=== PATIENT | male | born 1955 | race Caucasian/White ===

== ENCOUNTER 2018-03-09 12:42 | Emergency (ER) | payer OTHER ==
--- NOTE | 2018-03-09 13:55 | ERPHSYRPT ---
- History of Present Illness Time Seen by Provider: 03/09/18 13:43 Source: patient Exam Limitations: no limitations Patient Subjective Stated Complaint: c/o generalized weakness, dry cough, 3-4 days, fever friday 102.4. Triage Nursing Assessment: pt ambulated with steady gait to room. Resp easy with clear breath sounds. denies pain or disc. no cough noted at present. lungs CTA, diminished. Physician History: The patient is a 62-year-old male with his complaining of a fever and cough for 4 days. He also feels weak and has been sweating profusely. His temperature was 102.43 days ago. He tried to get into his local doctor but was unable to today. He denies pain. His past medical history is significant for coronary artery disease, CABG, hypertension, GERD, and high cholesterol. Timing/Duration: day(s) (4), gradual onset, worse Fever Severity: moderate Fever Therapy TOWER HAND: Ibuprofen Associated Symptoms: cough, diaphoresis, weakness, No shortness of breath Allergies/Adverse Reactions: No Known Drug Allergies Allergy (Unverified 03/09/18 13:22) Home Medications: Aspirin EC 81 mg [Ecotrin 81 mg] 81 mg PO DAILY 03/09/18 [History] Atorvastatin Calcium 40 mg PO DAILY 03/09/18 [History] Carvedilol 3.125 mg [Coreg 3.125 MG] 3.125 mg PO BID 03/09/18 [History] Famotidine [Pepcid] 20 mg PO BID 03/09/18 [History] Krill/Om-3/Dha/Epa/Phospho/Ast [Megared Sabine-3 Krill Oil Sfgl] 1 each PO DAILY 03/09/18 [History] Losartan Potassium 50 mg [Cozaar 50 MG] 50 mg PO DAILY 03/09/18 [History] Multivitamin [Multi-Vitamin Daily] 1 tab PO DAILY 03/09/18 [History] Hx Tetanus, Diphtheria Vaccination/Date Given: No Hx Influenza Vaccination/Date Given: No Hx Pneumococcal Vaccination/Date Given: Yes Immunizations Up to Date: Yes - Review of Systems Constitutional: Fever, Night Sweats, Weakness, No Chills Eyes: No Symptoms Ears, Nose, & Throat: No Symptoms Respiratory: Cough, No Wheezing Cardiac: No Chest Pain, No Edema, No Syncope Abdominal/Gastrointestinal: No Abdominal Pain, No Nausea, No Vomiting, No Diarrhea Genitourinary Symptoms: No Dysuria Musculoskeletal: No Back Pain, No Neck Pain Skin: No Rash Neurological: No Dizziness, No Focal Weakness, No Sensory Changes Psychological: No Symptoms Endocrine: No Symptoms Hematologic/Lymphatic: No Symptoms Immunological/Allergic: No Symptoms All Other Systems: Reviewed and Negative - Past Medical History Pertinent Past Medical History: Yes Neurological History: No Pertinent History ENT History: No Pertinent History Cardiac History: Coronary Artery Disease Respiratory History: No Pertinent History Endocrine Medical History: No Pertinent History Musculoskeletal History: No Pertinent History History: No Pertinent History Psycho-Social History: No Pertinent History Male Reproductive Disorders: No Pertinent History - Past Surgical History Past Surgical History: Yes Neuro Surgical History: No Pertinent History Cardiac: CABG Gastrointestinal: Appendectomy Genitourinary: No Pertinent History Musculoskeletal: No Pertinent History Male Surgical History: No Pertinent History Other Surgical History: 6 bypasses 2014 - Social History Smoking Status: Never smoker Drug Use: none Patient Lives Alone: No - Nursing Vital Signs Nursing Vital Signs: Initial Vital Signs Temperature 99.0 F 03/09/18 12:42 Pulse Rate 76 03/09/18 12:42 Respiratory Rate 20 03/09/18 12:42 Blood Pressure 122/56 03/09/18 12:42 O2 Sat by Pulse Oximetry 97 03/09/18 12:42 Pain Scale Pain Intensity 0 - Physical Exam General Appearance: mild distress Eye Exam: PERRL/EOMI ENT Exam: No pharyngeal erythema, No tonsillar exudate Neck Exam: supple, full range of motion, No meningismus Respiratory Exam: normal breath sounds, lungs clear, no respiratory distress Cardiovascular/Chest Exam: normal heart sounds, regular rate/rhythm, No murmur, No edema Gastrointestinal/Abdominal Exam: soft, non tender, no distention, hernia ( ventral hernia that is not tender) Rectal Exam: not done Extremity Exam: non-tender, normal range of motion, normal inspection, normal capillary refill Neurologic Exam: alert, oriented x 3, cooperative, feeder/folder II-XII nml as tested, normal mood/affect, sensation nml, No motor deficits Skin Exam: normal color, warm, dry, No rash SpO2 Interpretation: normal SpO2: 97 Oxygen Delivery: Room Air - Radiology Exams Chest X-ray Interpretation: Reviewed by me, Teleradiologist Report (per Dr Tirado), Negative Ordered Tests: Active Orders 24 hr Category Date Time Status Clean Catch Urine Specimen STAT Care 03/09/18 14:01 Active IV Insertion STAT Care 03/09/18 14:01 Active CHEST 2 VIEWS (PA AND LAT) Stat Exams 03/09/18 14:02 Completed BMP Stat Lab 03/09/18 14:17 Completed CBC W DIFF Stat Lab 03/09/18 14:17 Completed Lactic Acid Stat Lab 03/09/18 14:20 Completed Manual Differential NC Stat Lab 03/09/18 14:17 Completed UA W/ MICROSCOPIC Stat Lab 03/09/18 14:10 Completed Medication Summary Discontinued Medications Generic Name Dose Route Start Last Admin Trade Name Freq PRN Reason Stop Dose Admin Sodium Chloride 1,000 mls @ 999 mls/hr 03/09/18 14:01 03/09/18 14:49 Sodium Chloride 0.9% 1000 Ml IV 03/09/18 15:01 999 mls/hr .Q1H1M STA Administration Sodium Chloride Confirm 03/09/18 14:24 Sodium Chloride 0.9% 1000 Ml Administered 03/09/18 14:25 Dose 1,000 mls @ ud .ROUTE .STK-MED ONE Lab/Rad Data: Laboratory Result Diagrams 03/09/18 14:17 03/09/18 14:17 Laboratory Results 03/09/18 03/09/18 03/09/18 Range/Units 14:22 14:20 14:17 WBC (4.0-10.5) K/mm3 RBC (4.1-5.6) M/mm3 Hgb (12.5-18.0) gm/dl Hct (42-50) % MCV (78-100) fl MCH (26-32) pg MCHC (32-36) g/dl RDW (11.5-14.0) % Plt Count (150-450) K/mm3 MPV (6-9.5) fl Segmented Neutrophils (36.-66.) % Band Neutrophils (0.0-2.0) % Lymphocytes (Manual) (24-44) % Monocytes (Manual) (0.0-12.0) % Toxic Granulation Platelet Estimate (NORMAL) RBC Morphology Sodium 138 (137-145) mmol/L Potassium 3.9 (3.5-5.1) mmol/L Chloride 103 (98-107) mmol/L Carbon Dioxide 25 (22-30) mmol/L Anion Gap 14.4 (5-15) MEQ/L BUN 14 (9-20) mg/dL Creatinine 0.80 (0.66-1.25) mg/dL Estimated GFR > 60.0 ML/MIN Glucose 109 H (74-106) mg/dL Lactic Acid 1.1 (0.4-2.0) Calcium 8.5 (8.4-10.2) mg/dL Ur Collection Type Urine Color (YELLOW) Urine Appearance (CLEAR) Urine pH (5-6) Ur Specific [place] (1.005-1.025) Urine Protein (Negative) Urine Ketones (NEGATIVE) Urine Blood (0-5) Bill/ul Urine Nitrite (NEGATIVE) Urine Bilirubin (NEGATIVE) Urine Urobilinogen (0-1) mg/dL Ur Leukocyte Esterase (NEGATIVE) Urine Microscopic WBC (0-5) /HPF Ur Epithelial Cells (FEW) /HPF Urine Bacteria (NEGATIVE) /HPF Urine Mucus (NEGATIVE) /HPF Urine Culture Reflexed (NO) Urine Glucose (NEGATIVE) mg/dL Influenza Type A Ag NEGATIVE (NEGATIVE) Influenza Type B Ag NEGATIVE (NEGATIVE) RSV (PCR) NEGATIVE (Negative) Group A Strep Antibody NEGATIVE (NEGATIVE) 03/09/18 03/09/18 Range/Units 14:17 14:10 WBC 6.7 (4.0-10.5) K/mm3 RBC 5.17 (4.1-5.6) M/mm3 Hgb 16.2 (12.5-18.0) gm/dl Hct 46.4 (42-50) % MCV 89.7 (78-100) fl MCH 31.3 (26-32) pg MCHC 34.9 (32-36) g/dl RDW 13.9 (11.5-14.0) % Plt Count 111 L (150-450) K/mm3 MPV 9.7 H (6-9.5) fl Segmented Neutrophils 49 (36.-66.) % Band Neutrophils 1 (0.0-2.0) % Lymphocytes (Manual) 44 (24-44) % Monocytes (Manual) 6 (0.0-12.0) % Toxic Granulation 1+ Platelet Estimate NORMAL (NORMAL) RBC Morphology NORMAL Sodium (137-145) mmol/L Potassium (3.5-5.1) mmol/L Chloride (98-107) mmol/L Carbon Dioxide (22-30) mmol/L Anion Gap (5-15) MEQ/L BUN (9-20) mg/dL Creatinine (0.66-1.25) mg/dL Estimated GFR ML/MIN Glucose (74-106) mg/dL Lactic Acid (0.4-2.0) Calcium (8.4-10.2) mg/dL Ur Collection Type VOID Urine Color DARK YELLOW (YELLOW) Urine Appearance HAZY (CLEAR) Urine pH 5.0 (5-6) Ur Specific [place] 1.020 (1.005-1.025) Urine Protein 50 (Negative) Urine Ketones SMALL (NEGATIVE) Urine Blood NEGATIVE (0-5) Bill/ul Urine Nitrite NEGATIVE (NEGATIVE) Urine Bilirubin NEGATIVE (NEGATIVE) Urine Urobilinogen NORMAL (0-1) mg/dL Ur Leukocyte Esterase TRACE (NEGATIVE) Urine Microscopic WBC 0-2 (0-5) /HPF Ur Epithelial Cells RARE (FEW) /HPF Urine Bacteria RARE (NEGATIVE) /HPF Urine Mucus MANY (NEGATIVE) /HPF Urine Culture Reflexed NO (NO) Urine Glucose NEGATIVE (NEGATIVE) mg/dL Influenza Type A Ag (NEGATIVE) Influenza Type B Ag (NEGATIVE) RSV (PCR) (Negative) Group A Strep Antibody (NEGATIVE) - Progress Progress: improved Progress Note: 03/09/18 15:34 pt improves with NS IV. Counseled pt/family regarding: lab results, diagnosis, need for follow-up, rad results - Departure Time of Disposition: 15:34 Departure Disposition: Home Clinical Impression: Fever of unknown origin, Cough, Thrombocytopenia Condition: Stable Critical Care Time: No Referrals: JAILENE LAINEZ [Primary Care Provider] - Additional Instructions: You have a cough and fever of unknown origin. You were given fluids by IV in the ER. Take azithromycin 500 mg today and 250 mg daily for days 2 through 5. You also have a mildly low platelet count in your serum. Follow-up with your primary medical doctor later this week for further evaluation. Prescriptions: Azithromycin 250 mg [Zithromax 250 MG TABLET] 250 mg PO ZPACK #6 tablet
[2018-03-09] MEDS ORDERED: Sodium Chloride 0.9% 1000 ML 1,000 ML IV STA (14:01)
[2018-03-09] MEDS ORDERED: Sodium Chloride 0.9% 1000 ML 1,000 ML ONE (14:24)
[2018-03-09 14:31] LABS: Hematocrit 46.4 % (42-50); Hemoglobin 16.2 gm/dl (12.5-18.0); Mean Cell Volume 89.7 fl (78-100); Mean Corpuscular Hemoglobin 31.3 pg (26-32); Mean Corpuscular Hgb Concent. 34.9 g/dl (32-36); Mean Platelet Volume 9.7 fl (6-9.5); Platelet Count 111 K/mm3 (150-450); Red Blood Count 5.17 M/mm3 (4.1-5.6); Red Cell Distribution Width 13.9 % (11.5-14.0); White Blood Count 6.7 K/mm3 (4.0-10.5)
[2018-03-09 14:43] LABS: Appearance HAZY (CLEAR)
[2018-03-09 14:44] LABS: Bacteria RARE /HPF (NEGATIVE); Bilirubin NEGATIVE (NEGATIVE); Blood NEGATIVE Ery/ul (0-5); Epithelial Cells RARE /HPF (FEW); Glucose NEGATIVE (NEGATIVE); Ketones SMALL (NEGATIVE); Leukocyte Esterase TRACE (NEGATIVE); Mucus MANY /HPF (NEGATIVE); Nitrite NEGATIVE (NEGATIVE); Protein,Urine Dip 50 (Negative); Urobilinogen NORMAL mg/dL (0-1); WBC 0-2 /HPF (0-5)
[2018-03-09 14:48] LABS: ANION GAP 14.4 MEQ/L (5-15); BLOOD UREA NITROGEN 14 mg/dL (9-20); CHLORIDE 103 mmol/L (98-107); Calcium 8.5 mg/dL (8.4-10.2); Carbon Dioxide 25 mmol/L (22-30); Glucose 109 mg/dL (74-106); Potassium 3.9 mmol/L (3.5-5.1); SODIUM 138 mmol/L (137-145)
--- NOTE | 2018-03-09 14:53 | XRAY ---
Indication: Cough and chest heaviness. Comparison: None PA/lateral chest demonstrates normal heart and lungs with incidental CABG surgery and a few calcified granulomas. Bony thorax intact with sternotomy wires.
[2018-03-09 15:09] LABS: BAND 1 % (0.0-2.0); Lymphocytes 44 % (24-44); Monocyte 6 % (0.0-12.0); Neutrophils 49 % (36.-66.); Total Cells Counted 100
[2018-03-09 15:10] LABS: Platelet Estimate NORMAL (NORMAL); Toxic Granulation 1+
[2018-03-09 15:20] LABS: INFLUENZA A NEGATIVE (NEGATIVE); INFLUENZA B NEGATIVE (NEGATIVE); RESPIRATORY SYNCTIAL VIRUS NEGATIVE (Negative)
[2018-03-09 15:49] VITALS: BP 138/81; PULSE 70; O2SAT 98
== END 2018-03-09 15:48 | disposition home or self-care (01) ==
LOC: ED 12:42
DX: R50.9 Fever, unspecified (principal); D69.6 Thrombocytopenia, unspecified; R05 Cough; Z79.82 Long term (current) use of aspirin; Z79.899 Other long term (current) drug therapy
CPT/HCPCS: 36000; 36415; 71046; 80048; 81000; 83605; 85025; 87631; 87651; 96360; 99284